=== PATIENT | female | born 1980 | race Caucasian/White ===

== ENCOUNTER 2024-02-03 00:39 | Day surgery (SDC) | payer BC, SELFPAY ==
[2024-01-25 14:13] VITALS: BMI 30.5
--- NOTE | 2024-02-01 09:56 | SUR.PREOP ---
Patient called regarding upcoming procedure. Reviewed preop instructions, appointment times, and procedure prep.
[2024-02-03 10:29] VITALS: BP 123/76; PULSE 64; RESP 16; TEMP 36.8; O2SAT 100
[2024-02-03] MEDS: LACTATED RINGERS 1,000 ML 150 ML IV CONT (10:33)
--- NOTE | 2024-02-03 10:34 | WPDANESEPPF ---
Anes - Initial Pre Proc Eval Procedure: Operation Date: 02/03/24 11:30 Proposed Procedures p Colonoscopy - Braydon Lauren MD Date/Time: 02/03/24 10:34 Surgeon: Braydon Lauren MD Pre Op Diagnosis: fam hx of malignant neoplasm of digestive organs Patient Data Age: 43 Gender: F Height: 1.63 m Weight: 81.5 kg Last Vital Signs Temp 98.3 F 02/03/24 10:29 Pulse 64 02/03/24 10:29 Resp 16 02/03/24 10:29 BP 123/76 02/03/24 10:29 Pulse Ox 100 02/03/24 10:29 O2 Del Method Room Air 02/03/24 10:29 Allergies Allergy/AdvReac Type Severity Reaction Status Date / Time No Known Allergies Allergy Unverified 02/03/24 10:27 Home Medications Medication Instructions Recorded Confirmed Type aripiprazole 10 mg tablet (Abilify) 10 mg PO QHS 06/30/22 02/03/24 History hydroxyzine HCl 25 mg tablet 50 mg PO HS 12/04/23 02/03/24 History oxybutynin chloride 5 mg 5 mg PO DAILY #30 tabs 12/09/23 02/03/24 Rx tablet,extended release 24 hr quetiapine 25 mg tablet 25 - 50 mg PO HS 01/25/24 02/03/24 History Patient hx anesthesia problems: none Family hx anesthesia problems: none Results Review: All pre-operative results and documents have been reviewed as part of the pre-operative evaluation. PMF Past Medical History Medical History Bipolar disorder in partial remission Smoker Surgical History Surgical History Tubal ligation status Family History Family History Mother Family history of arthritis Carcinoma of colon Grandparent Family history of lung cancer Father Family history of emphysema Social History Social History Social History: Smoking packs per day: 1 Smoking cigarettes per day: 20.0 Years smoked: 20 Smoking pack-years: 20.00 Smoking status: Current every day smoker Tobacco type: cigarettes and e-cigarettes/vaping Second hand tobacco smoke exposure: Yes Additional smoking assessment comments: QUIT SMOKING CIG. 2019 STARTED VAPING Alcohol intake: current Alcohol use details: Pt drinks alcohol once a month. Substance use: current Substance use type: marijuana Other substance usage details: DAILY- SMOKES Last use: Pt last usage of marijuana was last night. Living arrangements: with family Occupation/Education: occupation Gender identity (if verbalized by the patient): Female Sexual Orientation (if Verbalized by the Patient): Straight or Heterosexual Spiritual care concerns: No Anes - Eval Final PreProcedure Day of Procedure 02/03/24 10:34 Patient weight: obese Heart: regular rate and rhythm Lungs: clear to auscultation Airway: Mallampati scale class II Neurological: alert and oriented Last oral intake: >/= 8 hours ASA classification: III Emergent: no Anesthetic plan: proceed Anesthesia type and monitoring: general GIVS and standard monitoring Results Review: All pre-operative results and documents have been reviewed as part of the pre-operative evaluation. Informed Consent: The patient's anesthetic plan and its attendant risks and benefits were discussed with the patient/family/POA. Questions were solicited and answers provided to the satisfaction of the patient/family/POA.
--- NOTE | 2024-02-03 11:25 | PM.HPGS ---
History of Present Illness History of Present Illness Consent: Risks, benefits, and alternatives have been discussed and questions answered. Patient agrees to proceed with procedure. Chief complaint: fam hx of malignant neoplasm of digestive organs Narrative: Rupinder Nash is a 43 year old female here for first colonoscopy, mother had colon cancer Review of Systems Constitutional: Constitutional: Denies headache(s) and Denies weakness Eyes: Eyes: Denies blurry vision ENT: Reports Normal hearing present, Denies headache(s) and Denies neck pain Cardiovascular: Cardiovascular: Denies chest pain and Denies dyspnea Respiratory: Respiratory: Denies dyspnea Gastrointestinal: Gastrointestinal: Reports no additional gastrointestinal complaints Genitourinary: Genitourinary: Denies dysuria Musculoskeletal: Musculoskeletal: Denies neck pain Integumentary/Breasts: Skin/Breast: Denies dry skin Neurologic: Reports Normal hearing present, Denies headache(s) and Denies weakness Psychiatric: Psychiatric: Denies anxiety Endocrine: Endocrine: Denies change in body appearance Hematologic/Lymphatic: Hematologic/Lymphatic: Denies easy bleeding Allergic/Immunologic: Allergic/Immunologic: Denies urticaria PMFSH Past Medical History Medical History Bipolar disorder in partial remission Smoker Surgical History Surgical History Tubal ligation status Family History Family History Mother Family history of arthritis Carcinoma of colon Grandparent Family history of lung cancer Father Family history of emphysema Social History Social History Social History: Smoking packs per day: 1 Smoking cigarettes per day: 20.0 Years smoked: 20 Smoking pack-years: 20.00 Smoking status: Current every day smoker Tobacco type: cigarettes and e-cigarettes/vaping Second hand tobacco smoke exposure: Yes Additional smoking assessment comments: QUIT SMOKING CIG. 2019 STARTED VAPING Alcohol intake: current Alcohol use details: Pt drinks alcohol once a month. Substance use: current Substance use type: marijuana Other substance usage details: DAILY- SMOKES Last use: Pt last usage of marijuana was last night. Living arrangements: with family Occupation/Education: occupation Gender identity (if verbalized by the patient): Female Sexual Orientation (if Verbalized by the Patient): Straight or Heterosexual Spiritual care concerns: No Meds Home Medications and Allergies Home Medications Medication Instructions Recorded Confirmed Type aripiprazole 10 mg tablet (Abilify) 10 mg PO QHS 06/30/22 02/03/24 History hydroxyzine HCl 25 mg tablet 50 mg PO HS 12/04/23 02/03/24 History oxybutynin chloride 5 mg 5 mg PO DAILY #30 tabs 12/09/23 02/03/24 Rx tablet,extended release 24 hr quetiapine 25 mg tablet 25 - 50 mg PO HS 01/25/24 02/03/24 History Allergies Allergy/AdvReac Type Severity Reaction Status Date / Time No Known Allergies Allergy Unverified 02/03/24 10:27 Vital Signs Vital Signs - 24 hr 02/03/24 10:29 Temperature 98.3 F Pulse Rate 64 Respiratory Rate 16 Blood Pressure 123/76 Pulse Oximetry 100 Oxygen Delivery Room Air Exam Const: General: comfortable and no acute distress HENMT: Face/Nose/Sinus: Normal nares present Eyes: General: appearance normal, both eyes and all related structures Neck: Neck: no JVD Resp: Auscultation: clear to auscultation bilaterally Cardio: Rate: regular rate Rhythm: regular rhythm GI: Inspection: non-distended GI Palp: Yes Soft to palpation Skin: General skin exam: normal color Neuro: General: gait normal Speech: normal speech Extrem: General: normal to inspection Psych: Mental Status: mental status grossly normal Assessment and Plan
[2024-02-03 11:40] VITALS: BP 120/62; PULSE 68; RESP 19; O2SAT 100
[2024-02-03 11:50] VITALS: BP 109/66; PULSE 65; RESP 15; O2SAT 100
[2024-02-03 12:00] VITALS: BP 118/75; PULSE 64; RESP 15; O2SAT 100
== END 2024-02-03 12:15 | disposition home or self-care (01) ==
PROVIDERS: PCP Family Medicine; Visit Provider Internal Medicine Gastroenterology
PROC: 0DJD8ZZ Inspection of Lower Intestinal Tract, Via Natural or Artificial Opening Endoscopic (ICD-10-PCS; CPT 45378; principal; 2024-02-03 11:30)
DX: Z12.11 Encounter for screening for malignant neoplasm of colon (principal); K63.5 Polyp of colon; K64.8 Other hemorrhoids; Z80.0 Family history of malignant neoplasm of digestive organs; F31.70 Bipolar disorder, currently in remission, most recent episode unspecified; F12.90 Cannabis use, unspecified, uncomplicated; F17.210 Nicotine dependence, cigarettes, uncomplicated; F17.290 Nicotine dependence, other tobacco product, uncomplicated; E66.9 Obesity, unspecified; Z68.30 Body mass index [BMI] 30.0-30.9, adult
CPT/HCPCS: 45385; 88305; J2001; J2704; J7120